=== PATIENT | male | born 2000 | race Caucasian/White ===

== ENCOUNTER 2025-07-02 09:08 | Inpatient (IN) | payer BC, SELFPAY ==
[~2025-07-02] VITALS: Ht 177.8 cm; Wt 96.3 kg
[~2025-07-02 09:08] MED LIST: IBUPROFEN LIQUID; KEPP1TAB PO; No Historical Meds; TYLENOL ELIXIR
[2025-07-02] MEDS: NS (Normal Saline) 0.9% 1,000 ML IV ONE (10:53)
[2025-07-02 11:05] LABS: BASO # 0.0 10^3/uL (0.0-0.2); BASO % 0.1 % (0.0-1.0); EOS # 0.0 10^3/uL (0.0-0.5); EOS % 0.3 % (0.0-3.0); LYMPH # 3.1 10^3/uL (1.5-5.0); LYMPH % 22.6 % (24.0-44.0); MONO # 1.3 10^3/uL (0.0-0.8); MONO % 9.7 % (2.0-8.0); NEUTROPHILS # 9.2 10^3/uL (1.5-8.5); NEUTROPHILS % 67.0 % (36.0-66.0); PLATELET COUNT, AUTOMATED 264 10^3/uL (150-450)
[2025-07-02 11:28] LABS: ALT/SGPT 55 U/L (7.0-40); AST/SGOT 64 U/L (<34); C REACTIVE PROTEIN QUANTITATIV 4.76 MG/DL (<1.0); CALCIUM LEVEL 9.6 MG/DL (8.5-10.1); CARBON DIOXIDE LEVEL 29 MMOL/L (20-31); CHLORIDE LEVEL 98 MMOL/L (98-107); CREATININE FOR GFR 0.83 MG/DL (0.70-1.30); GLOMERULAR FILTRATION RATE > 90.0 (>60); POTASSIUM SERUM 4.2 MMOL/L (3.5-5.1); SODIUM LEVEL 139 MMOL/L (136-145)
[2025-07-02 11:30] LABS: MONO REFLEX EBV COMP NEGATIVE (NEGATIVE)
[2025-07-02] MEDS ORDERED: ISOVUE-370 76% 100 ML VIAL As Ordered ONE (11:46)
[2025-07-02] MEDS: AMPICILLIN SOD/SULBACTAM SOD 3 GM in DEXTROSE 5% (D5W) MINI-BAG PLU 100 ML IV ONE (13:53)
[2025-07-02] MEDS ORDERED: KETOROLAC 30 MG/ML 1 ML VIAL IV PRN (13:55)
[2025-07-02 14:25] VITALS: BP 130/77; TEMP 99.9; O2SAT 99
[2025-07-02] MEDS: KETOROLAC 30 MG/ML 1 ML VIAL IV ONE (15:13)
[2025-07-02] MEDS ORDERED: HOME MED LIST COMPLETE! XX SCH (15:40)
[2025-07-02] MEDS ORDERED: dexAMETHasone 4 MG/ML 1 ML VIAL IV SCH (20:00)
[2025-07-02] MEDS: AMPICILLIN SOD/SULBACTAM SOD 3 GM in DEXTROSE 5% (D5W) MINI-BAG PLU 100 ML IV SCH (20:58)
[2025-07-02] MEDS: FAMOTIDINE 20 MG TAB PO SCH (20:58)
[2025-07-03 04:00] VITALS: TEMP 97.5; O2SAT 99
[2025-07-03 08:06] LABS: ALT/SGPT 61.0 U/L (7.0-40); AST/SGOT 79.0 U/L (<34)
[2025-07-03] MEDS ORDERED: FAMO40TA3 PO (08:58)
[2025-07-03] MEDS ORDERED: AMOX875T2 PO (08:58)
[2025-07-05 13:06] LABS: EBV AB TO NUCLEAR ANTIGEN < 18.00 U/mL (<18.00); EBV VIRAL CAPSID AG IGG < 18.00 U/mL (<18.00); EBV VIRAL CAPSID AG IGM < 36.00 U/mL (<36.00)
== END 2025-07-03 09:15 | disposition home or self-care (01) | DRG 113 ==
LOC: M ED 09:08 → M ED INP 13:53 → M MS4PR 14:26
PROVIDERS: ADMIT Internal Medicine Nephrology; ATTEND Internal Medicine Nephrology
DX: J36 Peritonsillar abscess (principal)